=== PATIENT | female | born 1995 | race Caucasian/White ===

== ENCOUNTER 2016-07-17 22:31 | Emergency (ER) | payer SELFPAY ==
[2016-07-18] MEDS ORDERED: TYLENOL #3 PO ONE (02:29)
[2016-07-18] MEDS ORDERED: NACL 0.9% 1000 ML 1,000 ML IV ONE (02:29)
--- NOTE | 2016-07-18 02:32 | Emergency Department Report ---
HPI - General Chief Complaint: Upper Respiratory Infection Time Seen by Provider: 07/18/16 02:27 - HPI HPI: 20-year-old female comes in for vomiting fever or body aches headaches coughing. Patient is 7 weeks she also complains of lower abdominal and lower back pain. She denies any vaginal bleeding denies any vaginal discharge. She is currently not on any vitamins. SHe reports she's been vomiting all day since about Thursday. She is accompanied by her who is translating. ED Past Medical Hx - Past Medical History Previous Medical History?: No Hx Hypertension: No Hx Diabetes: No Hx Deep Vein Thrombosis: No Hx Renal Disease: No Hx Sickle Cell Disease: No Hx Seizures: No Hx Asthma: No Hx COPD: No Hx HIV: No - Surgical History Past Surgical History?: No - Social History Smoking Status: Never Smoker Substance Use Type: None - Medications Home Medications: Home Medications Medication Instructions Recorded Confirmed Last Taken Type HYDROcodone/APAP 5-325 [[place] 1 each PO Q6HR PRN #20 tablet 01/22/14 Unknown Rx 5/325] Ibuprofen [Motrin] 800 mg PO TID PRN #60 tablet 01/22/14 Unknown Rx Sulfamethoxazole/Trimethoprim 1 each PO BID #20 tablet 11/11/14 Unknown Rx [Bactrim DS TAB] Acetaminophen/Codeine 1 tab PO Q6H PRN #12 tablet 07/18/16 Unknown Rx [Acetaminophen-Codeine #3 TAB] Ondansetron [Zofran Odt] 4 mg PO Q4H PRN #10 tab.rapdis 07/18/16 Unknown Rx Pnv95/Ferrous Fumarate/FA 1 each PO QDAY #90 tablet 07/18/16 Unknown Rx [ Formula Tablet] ED Review of Systems ROS: Stated complaint: EMESIS Other details as noted in HPI Physical Exam - Physical Exam Vital Signs: Vital Signs 07/17/16 22:54 Temperature 99.9 F H Pulse Rate 119 H Respiratory 24 Rate Blood Pressure 105/69 O2 Sat by Pulse 100 Oximetry Physical Exam: GENERAL: Alert and oriented x3, no apparent distress, Normal Gait, atraumatic. HEAD: Head is normocephalic and a-traumatic. EYES: Extra ocular muscles are intact. Pupils are equal, round, and reactive to light and accommodation. EARS: symetrical, atraumatic, non tender, ear canal clear and moderate cerumen, tympanic membrance non inflamed. gross auditory nml bilaterally. NOSE: Nose symetrical, Nontender,Nares appeared normal. MOUTH:Mouth is well hydrated and without lesions. Tonsils nonerythematous or swollen, Uvula midline, Tongue not elevated. Mucous membranes are moist. Posterior pharynx clear, no exudate or lesions. Patent airways. NECK: Supple. Non edematous, No carotid bruits. No lymphadenopathy or thyromegaly. LUNGS: Symetrical with respiration, No wheezing, no rales or crackles, CTAB. HEART: S1, S2 present, regular rate and rhythm without murmur, no rubs, no gallops. ABDOMEN: No organomegaly was noted,Positive bowel sounds, soft, and non- distended. . Nontender to palpation on all Quadrants, NO CVA tenderness. EXTREMITIES/MUSCULOSKELETAL: No cyanosis, clubbing, rash, lesions or edema. Full ROM bilaterally. UE/LE Pulses 2+ bilaterally. LE and UE 5+ strength bilaterally NEUROLOGIC: No focal Deficit, Cranial nerves II through XII are grossly intact. No loss of sensation, No facial droop, PSYCHIATRIC: Mood is congruent with affect, denies suicidal or homicidal ideations. SKIN: Warm and dry, No lesions, No ulceration or induration present ED Course Vital Signs 07/17/16 22:54 Temperature 99.9 F H Pulse Rate 119 H Respiratory 24 Rate Blood Pressure 105/69 O2 Sat by Pulse 100 Oximetry - Reevaluation(s) Reevaluation #1: 07/18/16 05:36 Patient reports that she feels much better after having the IV. ED Medical Decision Making - Lab Data Result diagrams: 07/18/16 02:42 07/18/16 02:42 - Medical Decision Making She's been evaluated by this provider fast track. Discussed with patient and that we'll place an IV give her some fluids and Zofran for the nausea and some Tylenol for the pain. This will also help with her cough. We would discharge patient on vitamins since she has not been taking them. We have ordered a CBC and a BMP. Started by mouth trial Critical care attestation.: If time is entered above; I have spent that time in minutes in the direct care of this critically ill patient, excluding procedure time. ED Disposition Clinical Impression: Cough Nausea & vomiting Qualifiers: Vomiting type: unspecified Vomiting Intractability: unspecified Qualified Code( s): R11.2 - Nausea with vomiting, unspecified Disposition: DISCHARGED TO HOME OR SELFCARE Is pt being admited?: No Does the pt Need Aspirin: No Condition: Stable Instructions: Morning Sickness (ED) Additional Instructions: Please did not take the Tylenol 3 and operate any heavy machinery or car. Take the Zofran for nausea and vomiting. Please take the vitamins 1 tablet daily these make an appointment to follow up with her [facility]. Prescriptions: Acetaminophen/Codeine [Acetaminophen-Codeine #3 TAB] 1 tab PO Q6H PRN #12 tablet PRN Reason: Pain Ondansetron [Zofran Odt] 4 mg PO Q4H PRN #10 tab.rapdis PRN Reason: Nausea And Vomiting Pnv95/Ferrous Fumarate/FA [ Formula Tablet] 1 each PO QDAY #90 tablet Referrals: PRIMARY CARE [Primary Care Provider] - 3-5 Days [facility] [Provider Group] - 3-5 Days Forms: Accompanied Note, Work/School Release Form(ED)
[2016-07-18 03:14] LABS: Hematocrit 35.2 % (30.3-42.9); Hemoglobin 12.4 gm/dl (10.1-14.3); Mean Corpuscular HGB Conc 35 % (30-34); Mean Corpuscular Hemoglobin 30 pg (28-32); Mean Corpuscular Volume 86 fl (79-97); Platelet Count 166 K/mm3 (140-440); Red Blood Count 4.09 M/mm3 (3.65-5.03); Red Cell Distribution Width 12.2 % (13.2-15.2); White Blood Count 5.8 K/mm3 (4.5-11.0)
[2016-07-18 03:36] LABS: Anion Gap 19 mmol/L; Blood Urea Nitrogen 6 mg/dL (7-17); Calcium 8.5 mg/dL (8.4-10.2); Carbon Dioxide 21 mmol/L (22-30); Chloride 95.5 mmol/L (98-107); Glucose 87 mg/dL (65-100); Potassium 3.6 mmol/L (3.6-5.0); Sodium 132 mmol/L (137-145)
[2016-07-18 05:21] LABS: Bilirubin,Urine NEG (Negative); Blood,Urine NEG (Negative); Ketones,Urine 80 mg/dL (Negative); Leukocyte Esterase,Urine SM (Negative); Mucus,Urine FEW /HPF; Nitrite,Urine NEG (Negative); Protein,Urine <15 mg/dL mg/dL (Negative); Urobilinogen,Urine < 2.0 mg/dL (<2.0)
[2016-07-18 06:31] VITALS: BP 118/76
== END 2016-07-18 06:32 | disposition home or self-care (01) ==
LOC: ED 22:31
DX: R11.2 Nausea with vomiting, unspecified (principal); R05 Cough
CPT/HCPCS: 36415; 80048; 81001; 85027; 87086; 96360; 99283; J7030